=== PATIENT | female | born 1965 | race Caucasian/White ===

== ENCOUNTER 2018-02-20 08:45 | Emergency (ER) | payer OTHER ==
[~2018-02-20] VITALS: Ht 162.5 cm; Wt 72.6 kg
[~2018-02-20 08:45] MED LIST: ANTIVERT/2525 M1 PO; GEODON80 MG PO; LEVOTHYROXINE0.1 MG PO; PRESTIQUE; VISTARIL50 MG PO
[2018-02-20 08:47] VITALS: BP 111/72
[2018-02-20] MEDS ORDERED: PENICILLIN VK250 MG PO (09:19)
[2018-02-20] MEDS ORDERED: Motrin,Rufen800 MG PO (09:19)
== END 2018-02-20 09:31 | disposition home or self-care (01) ==
LOC: ED 08:45
DX: K02.9 Dental caries, unspecified (principal); Z88.6 Allergy status to analgesic agent; Z79.899 Other long term (current) drug therapy

== ENCOUNTER 2018-03-29 03:32 | Emergency (ER) | payer OTHER ==
[~2018-03-29] VITALS: Ht 162.5 cm; Wt 77.1 kg
[~2018-03-29 03:32] MED LIST changes: +Motrin,Rufen800 MG PO; +PENICILLIN VK250 MG PO
[2018-03-29 03:34] VITALS: BP 121/65
[2018-03-29] MEDS ORDERED: NAPROSYN500 MG PO (03:41)
[2018-03-29] MEDS ORDERED: PRISTIQ100 MG PO (15:18)
[2018-03-29] MEDS ORDERED: PROTONIX40 MG PO (15:18)
[2018-03-29] MEDS ORDERED: AMITRIPTYLINE50 MG PO (15:19)
[2018-03-29] MEDS ORDERED: VITAMIN D31000 UNI1 PO (15:19)
[2018-03-29] MEDS ORDERED: BUSPAR5 MG PO (15:20)
[2018-03-29] MEDS ORDERED: GABAPENTIN800 MG PO (15:22)
[2018-03-29] MEDS ORDERED: ZOFRAN4 MG PO (15:23)
[2018-03-29] MEDS ORDERED: PENICILLIN VK500 MG PO (15:23)
[2018-03-29] MEDS ORDERED: Peridex 473 ML473 ML PO (15:23)
== END 2018-03-29 03:48 | disposition home or self-care (01) ==
LOC: ED 03:32
DX: K08.89 Other specified disorders of teeth and supporting structures (principal); Z88.6 Allergy status to analgesic agent; Z79.899 Other long term (current) drug therapy

== ENCOUNTER 2018-03-29 15:08 | Emergency (ER) | payer OTHER ==
[~2018-03-29] VITALS: Ht 162.5 cm; Wt 77.1 kg
[~2018-03-29 15:08] MED LIST changes: +NAPROSYN500 MG PO
[2018-03-29 15:10] VITALS: BP 149/79
[2018-03-29] MEDS ORDERED: PROTONIX40 MG PO (15:18)
[2018-03-29] MEDS ORDERED: PRISTIQ100 MG PO (15:18)
[2018-03-29] MEDS ORDERED: VITAMIN D31000 UNI1 PO (15:19)
[2018-03-29] MEDS ORDERED: AMITRIPTYLINE50 MG PO (15:19)
[2018-03-29] MEDS ORDERED: BUSPAR5 MG PO (15:20)
[2018-03-29] MEDS ORDERED: GABAPENTIN800 MG PO (15:22)
[2018-03-29] MEDS ORDERED: ZOFRAN4 MG PO (15:23)
[2018-03-29] MEDS ORDERED: Peridex 473 ML473 ML PO (15:23)
[2018-03-29] MEDS ORDERED: PENICILLIN VK500 MG PO (15:23)
== END 2018-03-29 15:55 | disposition home or self-care (01) ==
LOC: ED 15:08
DX: K02.9 Dental caries, unspecified (principal); R03.0 Elevated blood-pressure reading, without diagnosis of hypertension; Z88.8 Allergy status to other drugs, medicaments and biological substances; Z79.1 Long term (current) use of non-steroidal anti-inflammatories (NSAID); Z79.899 Other long term (current) drug therapy

== ENCOUNTER 2018-09-17 12:36 | Emergency (ER) | payer MEDICAID ==
[~2018-09-17] VITALS: Ht 162.5 cm; Wt 81.6 kg
[~2018-09-17 12:36] MED LIST changes: +AMITRIPTYLINE50 MG PO; +BUSPAR5 MG PO; +GABAPENTIN800 MG PO; +PENICILLIN VK500 MG PO; +PRISTIQ100 MG PO; +PROTONIX40 MG PO; +Peridex 473 ML473 ML PO; +VITAMIN D31000 UNI1 PO; +ZOFRAN4 MG PO
[2018-09-17 12:37] VITALS: BP 101/54
[2018-09-17] MEDS ORDERED: ANAPROX DS550 MG PO (14:13)
[2018-09-17] MEDS ORDERED: CEFADROXIL500 M1 PO (14:13)
== END 2018-09-17 14:27 | disposition home or self-care (01) ==
LOC: ED 12:36
DX: S91.111A Laceration without foreign body of right great toe without damage to nail, initial encounter (principal); S91.114A Laceration without foreign body of right lesser toe(s) without damage to nail, initial encounter; F17.200 Nicotine dependence, unspecified, uncomplicated; Z88.8 Allergy status to other drugs, medicaments and biological substances; Z79.2 Long term (current) use of antibiotics; Z79.899 Other long term (current) drug therapy; W54.1XXA Struck by dog, initial encounter; Y93.89 Activity, other specified; Y92.89 Other specified places as the place of occurrence of the external cause; Y99.8 Other external cause status

== ENCOUNTER 2022-11-04 21:18 | Emergency (ER) | payer MEDICAID ==
[~2022-11-04] VITALS: Ht 162.5 cm; Wt 81.6 kg
[~2022-11-04 21:18] MED LIST changes: +ANAPROX DS550 MG PO; +CEFADROXIL500 M1 PO
[2022-11-04 21:26] VITALS: BP 117/66
== END 2022-11-04 22:22 | disposition home or self-care (01) ==
LOC: ED 21:18
DX: S83.91XA Sprain of unspecified site of right knee, initial encounter (principal); M17.11 Unilateral primary osteoarthritis, right knee; Z88.8 Allergy status to other drugs, medicaments and biological substances; Z98.890 Other specified postprocedural states; W18.40XA Slipping, tripping and stumbling without falling, unspecified, initial encounter; Y93.89 Activity, other specified; Y92.89 Other specified places as the place of occurrence of the external cause; Y99.8 Other external cause status